=== PATIENT | male | born 1995 | race Caucasian/White ===

== ENCOUNTER 2018-07-16 17:06 | Emergency (ER) | payer OTHER ==
[2018-07-16 17:15] VITALS: BP 123/83; PULSE 72; TEMP 98.5; BMI 28.7
--- NOTE | 2018-07-16 17:15 | PDOC ---
Rapid Medical Evaluation Chief Complaint: Bite Time Seen by Provider: 07/16/18 17:14 Medical Evaluation: Allergies Allergy/AdvReac Type Severity Reaction Status Date / Time No Known Drug Allergies Allergy Unknown Verified 07/16/18 17:11 07/16/18 17:14 I have performed a brief in-person evaluation of this patient. The patient presents with a chief complaint of: ?bit by raccoon to R index this am Pertinent physical exam findings:No obvious wound noted I have ordered the following:nothing The patient will proceed to the ED for further evaluation Discharge Disposition - Diagnosis Bite - Referrals - Patient Instructions - Post Discharge Activity
[2018-07-16] MEDS ORDERED: RABIES IMMUNE GLOBULIN 300 UNITS/1 ML VIAL IM ONE (18:53)
[2018-07-16] MEDS ORDERED: DIPHTH,PERTUSS(ACELL),TET 0.5 ML DISP.SYRIN IM ONE ×2 (18:53→19:05)
[2018-07-16] MEDS ORDERED: RABIES VACCINE (PCEC)/PF 2.5 UNIT/VIAL IM ONE ×2 (18:53→19:05)
--- NOTE | 2018-07-16 18:58 | PDOC ---
History of Present Illness - General Chief Complaint: Bite Stated Complaint: RACCOON BITE Time Seen by Provider: 07/16/18 17:14 History Source: Patient Exam Limitations: No Limitations Past History - Travel Traveled outside of the country in the last 30 days: No Close contact w/someone who was outside of country & ill: No - Past Medical History Allergies/Adverse Reactions: Allergies Allergy/AdvReac Type Severity Reaction Status Date / Time No Known Drug Allergies Allergy Unknown Verified 07/16/18 17:11 Home Medications: Ambulatory Orders Amox-Tr/K Cl [Augmentin - 875Mg Tablet] 1 tab PO BID #20 tablet 07/16/18 Asthma: Yes COPD: No - Family Disease History Family Disease History: Diabetes: Grandparents, Heart Disease: Grandparents, Father - Immunization History Immunization Up to Date: No - Suicide/Smoking/Psychosocial Hx Smoking History: Never smoked Have you smoked in the past 12 months: No Hx Alcohol Use: No Drug/Substance Use Hx: No Substance Use Type: None Review of Systems - Review of Systems Able to Perform ROS?: Yes Comments:: 07/16/18 19:53 CONSTITUTIONAL: Absent: fever, chills, diaphoresis, generalized weakness, malaise, loss of appetite MUSCULOSKELETAL: Absent: myalgia, arthralgia, joint swelling SKIN: Present: raccoon bite Absent: rash, itching, pallor NEUROLOGIC: Absent: headache, focal weakness or paresthesias, dizziness, unsteady gait, seizure, mental status changes, bladder or bowel incontinence PSYCHIATRIC: Absent: anxiety, depression, suicidal or homicidal ideation, hallucinations. Is the patient limited Chinese proficient: No *Physical Exam - Vital Signs Last Vital Signs Temp Pulse Resp BP Pulse Ox 98.5 F 72 18 123/83 100 07/16/18 17:11 07/16/18 17:11 07/16/18 17:11 07/16/18 17:11 07/16/18 17:11 - Physical Exam Comments: 07/16/18 19:53 GENERAL: The patient is awake, alert, and fully oriented, in no acute distress. HEAD: Normal with no signs of trauma. EYES: Pupils equal, round and reactive to light, extraocular movements intact, sclera anicteric, conjunctiva clear. EXTREMITIES: Normal range of motion, no edema. NEUROLOGICAL: Normal speech, normal gait. PSYCH: Normal mood, normal affect. SKIN: No obvious bite to the R second digit. Warm, Dry, normal turgor, no rashes or lesions noted. Medical Decision Making - Medical Decision Making 07/16/18 19:51 The patient is a 22-year-old male with no PMH who presents to the ER for evaluation of a raccoon bite. 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 The patient states he noticed a box with two baby raccoons about to go into the industrial shredder. He was able to get the box and save the baby raccoons, but in the process got bit by one of them on his R second finger. He was wearing gloves and denies seeing blood at the time of the incident. He states that his boss made him come. He does not remember the date of his last tetanus shot. A/P: Raccoon bite On exam, no visible raccoon bite Wound cleaned However, given that he felt the bite, will initiate rabies vaccinations Tetanus shot updated Augmentin started Rabies schedule given DC home with instructions to return for the rest of the rabies series I discussed the physical exam findings, ancillary test results and final diagnoses with the patient. I answered all of the patient's questions. The patient was satisfied with the care received and felt comfortable with the discharge plan and treatment plan. The Patient agrees to follow up with the primary care physician/specialist within 24-72 hours. Return precautions were given. *DC/Admit/Observation/Transfer Diagnosis at time of Disposition: Bite - Discharge Dispostion Disposition: HOME Condition at time of disposition: Stable Decision to Admit order: No - Prescriptions Prescriptions: Amox-Tr/K Cl [Augmentin - 875Mg Tablet] 1 tab PO BID #20 tablet - Referrals Referrals: Joseph Jin MD [Primary Care Provider] - - Patient Instructions Printed Discharge Instructions: How to Care for a Wild Animal Bite Additional Instructions: You received rabies vaccinations today after getting bitten by a raccoon Your tetanus shot was updated today Take the augmentin as directed for 10 days. Take the medication with food It is very important that you follow up according to the schedule attached for your next rabies vaccinations Return to the ED sooner for redness to the area, discharge or if you have any changes in your symptoms - Post Discharge Activity Forms/Work/School Notes: Rabies Vaccination F/U Laura.
== END 2018-07-16 20:12 | disposition home or self-care (01) ==
LOC: JERFT 17:06
PROC: 3E0234Z Introduction of Serum, Toxoid and Vaccine into Muscle, Percutaneous Approach (ICD-10-PCS; principal; 2018-07-16)
PROC: 3E0234Z Introduction of Serum, Toxoid and Vaccine into Muscle, Percutaneous Approach (ICD-10-PCS; 2018-07-16)
DX: Z20.3 Contact with and (suspected) exposure to rabies (principal); Z23 Encounter for immunization
CPT/HCPCS: 90375; 90675; 90715; 99281-25

== ENCOUNTER 2018-07-19 16:48 | Emergency (ER) | payer OTHER ==
[2018-07-19 17:02] VITALS: BP 133/87; PULSE 77; TEMP 99; BMI 28.3
[2018-07-19] MEDS ORDERED: RABIES VACCINE (PCEC)/PF 2.5 UNIT/VIAL IM ONE ×2 (17:07→17:09)
--- NOTE | 2018-07-19 17:26 | PDOC ---
History of Present Illness - General Chief Complaint: Revisit,Rabies Injection Stated Complaint: RABIES VACCINE Time Seen by Provider: 07/19/18 17:06 History Source: Patient Exam Limitations: No Limitations - History of Present Illness Initial Comments: 07/19/18 17:24 22 year old male with medical history of asthma, no significant surgical history. Patient present for rabies vaccine #2. Reports no symptoms today Timing/Duration: other (3 days afo) Severity: mild Modifying Factors: improves with: other Associated Symptoms: reports: denies symptoms Aspirin Received prior to arrival: Yes: no aspirin today Past History - Travel Traveled outside of the country in the last 30 days: No Close contact w/someone who was outside of country & ill: No - Past Medical History Allergies/Adverse Reactions: Allergies Allergy/AdvReac Type Severity Reaction Status Date / Time No Known Drug Allergies Allergy Unknown Verified 07/19/18 16:59 Home Medications: Ambulatory Orders Amox-Tr/K Cl [Augmentin - 875Mg Tablet] 1 tab PO BID #20 tablet 07/16/18 Asthma: Yes COPD: No - Family Disease History Family Disease History: Diabetes: Grandparents, Heart Disease: Grandparents, Father - Immunization History Immunization Up to Date: No - Suicide/Smoking/Psychosocial Hx Smoking History: Never smoked Have you smoked in the past 12 months: No Information on smoking cessation initiated: No Hx Alcohol Use: No Drug/Substance Use Hx: No Substance Use Type: None Review of Systems - Review of Systems Able to Perform ROS?: Yes Is the patient limited Albanian proficient: No Constitutional: No: Chills, Fever HEENTM: No: Nose Pain, Nose Congestion, Throat Pain Respiratory: No: Orthopnea, Shortness of Breath Cardiac (ROS): No: Edema ABD/GI: No: Nausea : No: Dysuria Neurological: No: Headache, Numbness, Paresthesia Psychiatric: No: Stressors *Physical Exam - Vital Signs Last Vital Signs Temp Pulse Resp BP Pulse Ox 99 F 77 18 133/87 98 07/19/18 17:00 07/19/18 17:00 07/19/18 17:00 07/19/18 17:00 07/19/18 17:00 - Physical Exam General Appearance: Yes: Nourished, Appropriately Dressed HEENT: positive: SHEILA Neck: positive: Supple. negative: Lymphadenopathy (R), Lymphadenopathy (L) Respiratory/Chest: positive: Lungs Clear Cardiovascular: positive: Regular Rhythm, Regular Rate, S1, S2 Integumentary: positive: Other (no open areas noted on fingers) Neurologic: positive: progressive care nurse II-XII NML intact, Fully Oriented, Alert ED Treatment Course - Medications Given in the ED: ED Medications Discontinued Medications Generic Name Dose Route Start Last Admin Trade Name Freq PRN Reason Stop Dose Admin Rabies Vaccine 2.5 unit 07/19/18 17:07 07/19/18 17:16 Rabavert Rabies Vaccine IM 07/19/18 17:08 2.5 unit .ONCE ONE Administration Medical Decision Making - Medical Decision Making 07/19/18 17:26 22 year old male with medical history of asthma, no significant surgical history. Plan rabies vaccine *DC/Admit/Observation/Transfer Diagnosis at time of Disposition: Raccoon bite Qualifiers: Encounter type: sequela Qualified Code(s): W55.51XS - Bitten by raccoon, sequela - Discharge Dispostion Disposition: HOME Condition at time of disposition: Good - Referrals - Patient Instructions Printed Discharge Instructions: DI for Rabies Vaccine Additional Instructions: Please return 07/23/18 for vaccine #3 No alcohol for 2 days If you develop any symptoms please go to the nearest emergency room - Post Discharge Activity Forms/Work/School Notes: Back to Work
== END 2018-07-19 17:25 | disposition home or self-care (01) ==
LOC: JERFT 16:48
PROC: 3E0234Z Introduction of Serum, Toxoid and Vaccine into Muscle, Percutaneous Approach (ICD-10-PCS; principal; 2018-07-19)
DX: Z20.3 Contact with and (suspected) exposure to rabies (principal); W55.51XD Bitten by raccoon, subsequent encounter
CPT/HCPCS: 90675; 99281-25

== ENCOUNTER 2018-07-23 10:11 | Emergency (ER) | payer OTHER ==
[2018-07-23 10:17] VITALS: BP 136/89; PULSE 79; TEMP 98.5; BMI 28.1
[2018-07-23] MEDS ORDERED: RABIES VACCINE (PCEC)/PF 2.5 UNIT/VIAL IM ONE ×2 (10:56→10:58)
--- NOTE | 2018-07-23 10:59 | PDOC ---
History of Present Illness - General Chief Complaint: Revisit,Rabies Injection Stated Complaint: RABIES SHOT Time Seen by Provider: 07/23/18 10:47 History Source: Patient Past History - Past Medical History Allergies/Adverse Reactions: Allergies Allergy/AdvReac Type Severity Reaction Status Date / Time No Known Drug Allergies Allergy Unknown Verified 07/23/18 10:15 Home Medications: Ambulatory Orders Amox-Tr/K Cl [Augmentin - 875Mg Tablet] 1 tab PO BID #20 tablet 07/16/18 Asthma: Yes COPD: No - Family Disease History Family Disease History: Diabetes: Grandparents, Heart Disease: Grandparents, Father - Immunization History Immunization Up to Date: No - Suicide/Smoking/Psychosocial Hx Smoking History: Never smoked Have you smoked in the past 12 months: No Information on smoking cessation initiated: No Hx Alcohol Use: No Drug/Substance Use Hx: No Substance Use Type: None Review of Systems - Review of Systems Constitutional: No: Chills, Fever *Physical Exam - Vital Signs Last Vital Signs Temp Pulse Resp BP Pulse Ox 98.5 F 79 16 136/89 100 07/23/18 10:15 07/23/18 10:15 07/23/18 10:15 07/23/18 10:15 07/23/18 10:15 - Physical Exam General Appearance: Yes: Appropriately Dressed. No: Apparent Distress HEENT: positive: Normal Voice Neck: positive: Supple Respiratory/Chest: negative: Respiratory Distress Integumentary: positive: Dry, Warm Neurologic: positive: Fully Oriented, Alert, Normal Mood/Affect Medical Decision Making - Medical Decision Making 07/23/18 10:58 22 yo M, here for 3rd rabies vaccine s/p raccon bite. No acute complaints today. No obvious wound to R hand *DC/Admit/Observation/Transfer Diagnosis at time of Disposition: Need for rabies vaccination - Discharge Dispostion Disposition: HOME Condition at time of disposition: Good - Referrals Referrals: Joseph Jin MD [Primary Care Provider] - - Patient Instructions Additional Instructions: Return for additional vaccines as per schedule given to you - Post Discharge Activity
== END 2018-07-23 11:21 | disposition home or self-care (01) ==
LOC: JERFT 10:11
PROC: 3E0234Z Introduction of Serum, Toxoid and Vaccine into Muscle, Percutaneous Approach (ICD-10-PCS; principal; 2018-07-23)
DX: Z20.3 Contact with and (suspected) exposure to rabies (principal); S61.451D Open bite of right hand, subsequent encounter; W55.51XD Bitten by raccoon, subsequent encounter
CPT/HCPCS: 90675; 99281-25

== ENCOUNTER 2018-07-30 16:52 | Emergency (ER) | payer OTHER ==
[2018-07-30] MEDS ORDERED: RABIES VACCINE (PCEC)/PF 2.5 UNIT/VIAL IM ONE ×2 (16:57→17:02)
--- NOTE | 2018-07-30 16:58 | PDOC ---
Rapid Medical Evaluation Time Seen by Provider: 07/30/18 16:56 Medical Evaluation: Allergies Allergy/AdvReac Type Severity Reaction Status Date / Time No Known Drug Allergies Allergy Unknown Verified 07/23/18 10:15 07/30/18 16:56 HPI:Here for rabbies vaccination PE:No gross deficits ORDERS: Rabies vaccination Discharge Disposition - Diagnosis Raccoon bite - Referrals - Patient Instructions - Post Discharge Activity
[2018-07-30 16:59] VITALS: BP 126/85; PULSE 78; TEMP 97.8; BMI 28.3
--- NOTE | 2018-07-30 17:10 | PDOC ---
History of Present Illness - General Chief Complaint: Revisit,Rabies Injection Stated Complaint: FOLLOW UP/RABIES SHOT Time Seen by Provider: 07/30/18 16:56 History Source: Patient Exam Limitations: No Limitations - History of Present Illness Initial Comments: Patient is a 22-year-old male who states he was scratched by raccoon on his right hand. He is here for his third RabAvert injection. He denies symptoms at present. He denies aggravating or relieving factors. 07/30/18 17:08 Past History - Travel Traveled outside of the country in the last 30 days: No Close contact w/someone who was outside of country & ill: No - Past Medical History Allergies/Adverse Reactions: Allergies Allergy/AdvReac Type Severity Reaction Status Date / Time No Known Drug Allergies Allergy Unknown Verified 07/23/18 10:15 Home Medications: Ambulatory Orders Amox-Tr/K Cl [Augmentin - 875Mg Tablet] 1 tab PO BID #20 tablet 07/16/18 Asthma: Yes COPD: No - Family Disease History Family Disease History: Diabetes: Grandparents, Heart Disease: Grandparents, Father - Immunization History Immunization Up to Date: No - Suicide/Smoking/Psychosocial Hx Smoking History: Never smoked Have you smoked in the past 12 months: No Information on smoking cessation initiated: No Hx Alcohol Use: No Drug/Substance Use Hx: No Substance Use Type: None Review of Systems - Review of Systems Able to Perform ROS?: No Is the patient limited Andorran proficient: No Constitutional: No: Chills, Fever (All Systems are negative except those present in HPI) *Physical Exam - Vital Signs Last Vital Signs Temp Pulse Resp BP Pulse Ox 97.8 F 78 16 126/85 100 07/30/18 16:57 07/30/18 16:57 07/30/18 16:57 07/30/18 16:57 07/30/18 16:57 - Physical Exam Comments: Skin: Clear Heart: RRR Lungs: Clear MS: Moves all extremities Pysch: Appropriate affect 07/30/18 17:09 Medical Decision Making - Medical Decision Making 07/30/18 17:09 Pt received final Rabavert injection. *DC/Admit/Observation/Transfer Diagnosis at time of Disposition: Rabies exposure Raccoon bite Qualifiers: Encounter type: sequela Qualified Code(s): W55.51XS - Bitten by raccoon, sequela - Discharge Dispostion Disposition: HOME Condition at time of disposition: Good - Referrals - Patient Instructions Printed Discharge Instructions: How to Care for a Domestic Animal Bite - Post Discharge Activity
== END 2018-07-30 17:11 | disposition home or self-care (01) ==
LOC: JERFT 16:52
PROC: 3E0234Z Introduction of Serum, Toxoid and Vaccine into Muscle, Percutaneous Approach (ICD-10-PCS; principal; 2018-07-30)
DX: Z20.3 Contact with and (suspected) exposure to rabies (principal); Z23 Encounter for immunization; W55.51XA Bitten by raccoon, initial encounter; Y93.89 Activity, other specified; Y92.89 Other specified places as the place of occurrence of the external cause
CPT/HCPCS: 90675; 99281-25

== ENCOUNTER 2018-08-21 15:57 | Emergency (ER) | payer OTHER | END 2018-08-21 18:51 | disposition home or self-care (01) | LOC: JER 15:57 ==